=== PATIENT | female | born 1995 | race Caucasian/White ===

== ENCOUNTER 2017-05-22 02:32 | Observation (INO) | payer OTHER ==
[~2017-05-22] VITALS: Ht 172.7 cm; Wt 87.5 kg
[2017-05-22] MEDS ORDERED: MORPHINE SULFATE 4 MG/ML, 1ML ONE ×2 (03:25→05:45)
[2017-05-22] MEDS ORDERED: ONDANSETRON 2MG/ML, 2ML ONE ×2 (03:25→10:47)
[2017-05-22] MEDS ORDERED: SODIUM CHLORIDE FLUSH 10ML SYR IVF ONE (03:30)
[2017-05-22] MEDS ORDERED: ONDANSETRON 2MG/ML, 2ML IVPush ONE (03:30)
[2017-05-22] MEDS: MORPHINE SULFATE 4 MG/ML, 1ML IVPush PRN ×2 (03:39→06:27)
[2017-05-22] MEDS ORDERED: PROPOFOL 10 MG/ML, 20ML ONE ×2 (05:19→10:47)
[2017-05-22] MEDS ORDERED: PROPOFOL 10 MG/ML, 20ML IVPush ONE (05:30)
[2017-05-22 07:32] VITALS: BP 129/81
[2017-05-22] MEDS ORDERED: FENTANYL PF 100 MCG/2ML ONE (09:54)
[2017-05-22] MEDS ORDERED: HYDROmorphone 1 MG/ML, 1ML ONE ×2 (09:54→12:16)
[2017-05-22] MEDS ORDERED: MIDAZOLAM 1 MG/ML, 2ML ONE (09:54)
[2017-05-22] MEDS ORDERED: EPINEPHRINE 1 MG/ML, 1ML ONE (10:06)
[2017-05-22] MEDS ORDERED: BUPIVACAINE/PF 0.5% ONE (10:06)
[2017-05-22] MEDS ORDERED: HYDROmorphone 1 MG/ML, 1ML IV PRN ×2 (10:30→12:00)
[2017-05-22] MEDS ORDERED: OXYcodone/APAP 5/325MG TABLET PO PRN ×2 (10:30→15:30)
[2017-05-22 10:38] LABS: HCG UR OBC PASS
[2017-05-22] MEDS ORDERED: CEFAZOLIN 1,000 MG ONE (10:47)
[2017-05-22] MEDS ORDERED: DEXAMETHASONE 4 MG/ML, 1ML ONE (10:47)
[2017-05-22] MEDS ORDERED: BUPIVACAINE/PF-EPI 0.5% 1:200K IM ONE (11:16)
[2017-05-22] MEDS ORDERED: ACETAMINOPHEN 325 MG TABLET PO PRN (12:00)
[2017-05-22] MEDS ORDERED: FENTANYL PF 100 MCG/2ML IV PRN (12:00)
[2017-05-22] MEDS ORDERED: OXYcodone 5 MG/5 ML ORAL.SOL UDC PO PRN (12:00)
[2017-05-22] MEDS ORDERED: MEPERIDINE/PF 25MG/0.5ML IVPush PRN (12:00)
[2017-05-22] MEDS ORDERED: HYDROcodone/APAP 7.5-325MG/15ML UDC PO PRN (12:00)
[2017-05-22] MEDS ORDERED: ACETAMINOPHEN 650 MG/20.3 ML UDC ONE (13:29)
[2017-05-22] MEDS ORDERED: OXYcodone 5 MG/5 ML ORAL.SOL UDC ONE (13:30)
[2017-05-22 14:21] VITALS: BP 143/92
[2017-05-22] MEDS ORDERED: ONDANSETRON 2MG/ML, 2ML IV PRN (15:30)
[2017-05-22] MEDS ORDERED: OXYC-302 PO (16:43)
[2017-05-22] MEDS ORDERED: PNEUMOCOCCAL 23 VACCINE IM-VACC ONE (18:30)
[2017-05-22] MEDS ORDERED: CEFOTETAN PMX 2GM/50ML 50 ML IVPB SCH (19:00)
== END 2017-05-22 19:40 | disposition home or self-care (01) ==
LOC: ED 06:00 → EDIP 06:37 → 4NOR 07:34
PROVIDERS: ADMIT Orthopaedic Surgery Orthopaedic Surgery of the Spine; ATTEND Orthopaedic Surgery Orthopaedic Surgery of the Spine
DX: S52.301A Unspecified fracture of shaft of right radius, initial encounter for closed fracture (principal); S52.201A Unspecified fracture of shaft of right ulna, initial encounter for closed fracture; S52.611A Displaced fracture of right ulna styloid process, initial encounter for closed fracture; W18.30XA Fall on same level, unspecified, initial encounter; Y93.89 Activity, other specified; Y92.89 Other specified places as the place of occurrence of the external cause; Y99.8 Other external cause status; Z23 Encounter for immunization
CPT/HCPCS: 25575; 73090; 73110; 76001; 81025; 90471; 90732; 96365; 96375; 96376; 99285; C1713; G0378; J0171; J0690; J1100; J1170; J2250; J2405; J2704; J3010; J3490; S0074